=== PATIENT | female | born 1950 | race Caucasian/White ===

== ENCOUNTER → 2016-08-27 | Outpatient (CLI) | payer MEDICARE, MEDICAID ==
[~2016-08-27] MED LIST: ALEN70TA2 PO; ALPR1TAB2 PO; ASPI81CH43 PO; ATOR20TA50 PO; CHOL20007 PO; MUPI2OIN10 EACHNOSTRI; OXY10CRT PO
== END | disposition home or self-care (01) ==
LOC: LAB 11:45
PROVIDERS: ATTEND Internal Medicine Gastroenterology
DX: B19.20 Unspecified viral hepatitis C without hepatic coma (principal)
CPT/HCPCS: 87522

== ENCOUNTER 2017-11-18 13:28 | Inpatient (IN) | payer MEDICARE, OTHER ==
[~2017-11-18] VITALS: Ht 152.4 cm; Wt 104.3 kg
[2017-11-18] MEDS ORDERED: Acetam/CODEINE 120mg/12mg per 5mL UD PO ONE (14:15)
[2017-11-18] MEDS ORDERED: SODIUM CHLORIDE 0.9% 1,000 ML IV ONE (14:37)
[2017-11-18] MEDS ORDERED: HYDROmorphone HCL 2 MG/ML VL IM ONE (14:45)
[2017-11-18] MEDS ORDERED: ONDANSETRON HCL 4 MG/2 ML VIAL IV ONE (14:45)
[2017-11-18 15:49] LABS: INR 1.03 (0.9-1.15); Partial Thromboplastin Time 26.5 sec (23.78-33.04)
[2017-11-18 15:52] LABS: Basophils # (auto) 0 uL; Eosinophils # (auto) 0 uL; Monocytes # (auto) 1.3 uL
[2017-11-18 15:53] LABS: Basophils % (auto) 0.2 % (0.0-2.0); Eosinophils % (auto) 0.2 % (0.0-7.0); Hemoglobin 13.6 g/dL (12.2-16.2); Lymphocytes # (auto) 1.6 uL; Lymphocytes % (auto) 16.1 % (10.0-50.0); Mean Corpuscular Hemoglobin 34.5 pg (28.0-32.0); Mean Corpuscular Volume 98.7 fL (80.0-100.0); Monocytes % (auto) 13.1 % (0.0-12.0); Neutrophils # (auto) 6.8 uL; Neutrophils % (auto) 70.4 % (37.0-80.0); Nucleated Red Blood Cells % 0.2 %; Platelet Count (auto) 203 10^3/uL (140-450); Red Blood Cells 3.95 10^6/uL (4.0-5.20); Red Cell Distribution Width 13.5 % (11.8-14.3); White Blood Cell 9.7 10^3/uL (4.4-10.8)
[2017-11-18 15:54] LABS: Albumin 3.9 g/dL (3.4-5.0); BUN/Creatinine Ratio 14.3; Bilirubin, Total 0.9 mg/dL (0.2-1.0); Calcium 8.9 mg/dL (8.5-10.1)
[2017-11-18] MEDS ORDERED: LORazepam 0.5 MG TAB PO PRN (16:00)
[2017-11-18] MEDS ORDERED: MORPHINE SULF(PF) 0.5MG/ML 10ML VIAL IV PRN (16:00)
[2017-11-18] MEDS ORDERED: HYDROmorphone HCL 2 MG/ML VL IV PRN (16:00)
[2017-11-18] MEDS ORDERED: PROMETHAZINE HCL 25 MG/ML 1ML IV PRN (16:00)
[2017-11-18] MEDS ORDERED: ALBUTEROL SULF 2.5 MG/0.5ML(0.5%) NEB SOLN NEB PRN (16:00)
[2017-11-18] MEDS ORDERED: LACTULOSE 20Gm/30ML SOLN PO PRN (16:00)
[2017-11-18] MEDS ORDERED: NITROGLYCERIN 0.4 MG SL TAB SL PRN (16:00)
[2017-11-18] MEDS: SODIUM CHLORIDE 0.9% 1,000 ML IV SCH ×2 (16:03→17:55)
[2017-11-18 16:43] LABS: Urine Bacteria NONE SEEN /hpf (None Seen); Urine Blood Negative /uL (Negative); Urine Mucus FEW (None Seen); Urine Specific Gravity 1.008 (1.001-1.035); Urine WBC <1 /hpf (0 - 5)
[2017-11-18] MEDS ORDERED: CHOLECALCIFEROL (VITD3) 1,000 UNIT TAB PO ONE (17:30)
[2017-11-18] MEDS ORDERED: CITALOPRAM HYDROBR 20 MG TAB PO ONE (17:30)
[2017-11-18] MEDS ORDERED: IPRATROPIUM BROM 0.5 MG/2.5ML INH SOL NEB SCH (18:00)
[2017-11-18] MEDS ORDERED: ALBUTEROL SULF 2.5 MG/0.5ML(0.5%) NEB SOLN NEB SCH (18:00)
[2017-11-18 20:28] VITALS: BP 155/90
[2017-11-18] MEDS: TEMAZEPAM 15 MG CAP PO PRN (21:37)
[2017-11-18] MEDS: ATORVASTATIN 20 MG TAB PO SCH (21:38)
[2017-11-18] MEDS: oxyCODONE ER 10 MG TAB PO SCH (21:38)
[2017-11-18] MEDS: ALPRAZolam 0.5 MG TAB PO SCH (21:39)
[2017-11-18] MEDS: traZODone HCL 50 MG TAB PO SCH (21:42)
[2017-11-18 22:00] VITALS: BP 155/90
[2017-11-19 06:00] VITALS: BP_SYST 141; BP_SYST 147; BP_DIAS 75; BP_DIAS 79
[2017-11-19 09:00] VITALS: BP 149/66
[2017-11-19] MEDS: ALPRAZolam 0.5 MG TAB PO SCH ×2 (10:12→21:14)
[2017-11-19] MEDS: CHOLECALCIFEROL (VITD3) 1,000 UNIT TAB PO SCH (10:12)
[2017-11-19] MEDS: CITALOPRAM HYDROBR 20 MG TAB PO SCH (10:13)
[2017-11-19] MEDS: oxyCODONE ER 10 MG TAB PO SCH ×2 (10:13→21:14)
[2017-11-19] MEDS: ACETAMINOPHEN 500 MG TAB PO PRN ×2 (10:25→18:18)
[2017-11-19 13:00] VITALS: BP 155/89
[2017-11-19] MEDS ORDERED: HYDROcodone-ACET 10/325MG TAB PO ONE (13:00)
[2017-11-19] MEDS: SODIUM CHLORIDE 0.9% 1,000 ML IV SCH ×2 (13:31→21:55)
[2017-11-19 17:00] VITALS: BP 98/42
[2017-11-19 20:00] VITALS: BP 134/64
[2017-11-19] MEDS: TEMAZEPAM 15 MG CAP PO PRN (21:13)
[2017-11-19] MEDS: ATORVASTATIN 20 MG TAB PO SCH (21:14)
[2017-11-19] MEDS: traZODone HCL 50 MG TAB PO SCH (21:16)
[2017-11-19 22:00] VITALS: BP 134/64
[2017-11-20] MEDS: HYDROcodone-ACET 5/325MG TAB PO PRN ×2 (04:51→18:57)
[2017-11-20 05:00] VITALS: BP 143/71
[2017-11-20] MEDS: SODIUM CHLORIDE 0.9% 1,000 ML IV SCH ×2 (05:07→18:24)
[2017-11-20 09:00] VITALS: BP 126/79
[2017-11-20] MEDS: ACETAMINOPHEN 500 MG TAB PO PRN (09:08)
[2017-11-20] MEDS: CITALOPRAM HYDROBR 20 MG TAB PO SCH (09:09)
[2017-11-20] MEDS: CHOLECALCIFEROL (VITD3) 1,000 UNIT TAB PO SCH (09:09)
[2017-11-20] MEDS: ALPRAZolam 0.5 MG TAB PO SCH ×2 (09:10→21:46)
[2017-11-20] MEDS: oxyCODONE ER 10 MG TAB PO SCH ×2 (09:11→21:46)
[2017-11-20] MEDS ORDERED: HYDROcodone-ACET 10/325MG TAB PO ONE (12:00)
[2017-11-20 13:00] VITALS: BP 129/81
[2017-11-20 17:00] VITALS: BP 120/70
[2017-11-20] MEDS: ATORVASTATIN 20 MG TAB PO SCH (21:46)
[2017-11-20] MEDS: traZODone HCL 50 MG TAB PO SCH (21:47)
[2017-11-20 23:42] VITALS: BP 132/88
[2017-11-21] MEDS: HYDROcodone-ACET 5/325MG TAB PO PRN (03:36)
[2017-11-21] MEDS: SODIUM CHLORIDE 0.9% 1,000 ML IV SCH ×2 (03:36→13:55)
[2017-11-21 05:00] VITALS: BP 145/73
[2017-11-21 09:00] VITALS: BP 143/77
[2017-11-21] MEDS: CHOLECALCIFEROL (VITD3) 1,000 UNIT TAB PO SCH (09:47)
[2017-11-21] MEDS: ALPRAZolam 0.5 MG TAB PO SCH (09:47)
[2017-11-21] MEDS: CITALOPRAM HYDROBR 20 MG TAB PO SCH (09:48)
[2017-11-21] MEDS: oxyCODONE ER 10 MG TAB PO SCH (09:48)
[2017-11-21 13:00] VITALS: BP 137/71
[2017-11-21 14:57] VITALS: BP 137/71
[2017-11-21] MEDS: ACETAMINOPHEN 500 MG TAB PO PRN (16:36)
[2017-11-21 17:00] VITALS: BP 140/75
== END 2017-11-21 18:37 | DRG 563 ==
LOC: EDBD 13:28 → ER 13:31 → TELE 13:32 → TELE-WESTW 20:28
PROVIDERS: ADMIT Internal Medicine; ATTEND Family Medicine
PROC: 2W3LX1Z Immobilization of Right Lower Extremity using Splint (ICD-10-PCS; principal; 2017-11-18)
DX: S82.851A Displaced trimalleolar fracture of right lower leg, initial encounter for closed fracture (principal); J44.9 Chronic obstructive pulmonary disease, unspecified; F17.200 Nicotine dependence, unspecified, uncomplicated; G89.29 Other chronic pain; H40.9 Unspecified glaucoma; H54.8 Legal blindness, as defined in USA; I10 Essential (primary) hypertension; M41.9 Scoliosis, unspecified; M54.9 Dorsalgia, unspecified; W18.39XA Other fall on same level, initial encounter; Y93.89 Activity, other specified; Y92.89 Other specified places as the place of occurrence of the external cause; Z98.49 Cataract extraction status, unspecified eye; Z90.49 Acquired absence of other specified parts of digestive tract; Z79.82 Long term (current) use of aspirin; Z79.899 Other long term (current) drug therapy
CPT/HCPCS: 36415; 71045; 73610; 80053; 81001; 85025; 85610; 85730; 93306; 94640; 96361; 96372; 96374; J2405